=== PATIENT | male | born 1995 | race American Indian/Alaskan Native ===

== ENCOUNTER 2017-01-29 21:38 | Emergency (ER) | payer OTHER ==
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
[2017-01-30] MEDS ORDERED: FLEXERIL PO ONE (00:11)
[2017-01-30] MEDS ORDERED: NORCO 5/325 PO ONE (00:11)
[2017-01-30 01:11] VITALS: BP 127/77
== END 2017-01-30 01:11 | disposition home or self-care (01) ==
LOC: ED 21:38
DX: M54.5 Low back pain (principal); M62.830 Muscle spasm of back; R11.0 Nausea; F17.200 Nicotine dependence, unspecified, uncomplicated; V49.40XA Driver injured in collision with unspecified motor vehicles in traffic accident, initial encounter; Y93.9 Activity, unspecified; Y99.9 Unspecified external cause status; Y92.410 Unspecified street and highway as the place of occurrence of the external cause
CPT/HCPCS: 99282